=== PATIENT | female | born 1965 | race Caucasian/White ===

== ENCOUNTER 2017-11-25 10:53 | Day surgery (SDC) | payer MEDICARE, OTHER ==
[~2017-11-25] VITALS: Ht 177.8 cm; Wt 121.1 kg
[~2017-11-25 10:53] MED LIST: ALBIPROI INH; ALBU3IS INH; ALBU90OI; BECL40OI INH; CHOL10002; CODGUAEL PO; CRUTCH2 UD; CYCL10 PO; Cephalexin500 MG PO; FIORICET 50-321 EACH; FLUSAL1005 INH; GABA300 PO; GLYB5 PO; HYDACE5 PO; HYDACE5325 PO; Humalog100 UNIT/3; INSDET100 SQ; LISI20 PO; LOVA40; MONT10T; MONT10T PO; MULVITB; MULVITMIND PO; NAPR500; NAPR500 PO; NITR.4SL SL; NORT25 PO; OXYACE5T PO; PRED20 PO; PSEU120ER PO; Percocet 5-3251 EACH PO; QVAR7.3 G1; RANI150 PO; SUMA25; SUMA25 PO; TIOT18; TOPI50 PO; TRAZ150T57; Vitamin D400 UNI2; [UNRECOGNIZED DRUG - REMARK]
== END 2017-11-25 12:58 | disposition home or self-care (01) ==
LOC: ORSCSDS 10:53
PROVIDERS: Ophthalmology
PROC: 08RK3JZ Replacement of Left Lens with Synthetic Substitute, Percutaneous Approach (ICD-10-PCS; principal; 2017-11-25 12:30)
DX: H25.12 Age-related nuclear cataract, left eye (principal); E11.9 Type 2 diabetes mellitus without complications; J45.909 Unspecified asthma, uncomplicated; I10 Essential (primary) hypertension; Z79.4 Long term (current) use of insulin; Z79.899 Other long term (current) drug therapy
CPT/HCPCS: 82947; J2250; J3010; J7040; V2632